=== PATIENT | male | born 1990 | race Caucasian/White ===

== ENCOUNTER 2017-08-07 11:37 | Emergency (ER) | payer SELFPAY ==
[2017-08-07 12:05] VITALS: BP 120/70
[2017-08-07] MEDS ORDERED: Famotidine TAB* 20 MG PO ONE (12:23)
[2017-08-07] MEDS ORDERED: Al Hydrox/Mg Hydrox/Simet LIQ* 30 ML UDC PO ONE (12:23)
--- NOTE | 2017-08-07 12:30 | UC ---
Abdominal Pain Male HPI - HPI Summary HPI Summary: 27 year old male with no significant pmhx here with abdominal pain that started few hours [employer]. He had URI symptoms that started 4 days ago and today he had 2 episodes of diarrhea along nausea. NO fever or chills NO melena or hematochezia. Partially relieved by belching. - History of Current Complaint Chief Complaint: UCAbdominalPain Stated Complaint: ABDOMINAL PAIN Time Seen by Provider: 08/07/17 12:01 Severity Initially: Moderate Pain Intensity: 6 Location: Diffuse Character: Burning Alleviating Factor(s): Other - burping Associated Signs And Symptoms: Positive: Nausea, Diarrhea. Negative: Fever, Constipation, Blood in Stool - Allergies/Home Medications Allergies/Adverse Reactions: Allergies Allergy/AdvReac Type Severity Reaction Status Date / Time No Known Allergies Allergy Verified 08/07/17 11:58 PMH/Surg Hx/FS Hx/Imm Hx Previously Healthy: Yes Other History Of: Negative For: Anticoagulant Therapy - Surgical History Surgical History: Yes Surgery Procedure, Year, and Place: adenoids removed - Social History Alcohol Use: Weekly Substance Use Type: None Smoking Status (MU): Former Smoker Review of Systems Constitutional: Negative Skin: Negative Eyes: Negative ENT: Negative Respiratory: Negative Cardiovascular: Negative Gastrointestinal: Diarrhea, Nausea Genitourinary: Negative Motor: Negative Neurovascular: Negative Musculoskeletal: Negative Neurological: Negative Psychological: Negative All Other Systems Reviewed And Are Negative: Yes Physical Exam Triage Information Reviewed: Yes Appearance: Well-Appearing, No Pain Distress Vital Signs: Initial Vital Signs Temp 37.2 C 08/07/17 12:00 Pulse 59 08/07/17 12:00 Resp 16 08/07/17 12:00 BP 120/70 08/07/17 12:00 Pulse Ox 97 08/07/17 12:00 ENT Exam: Normal Neck exam: Normal Respiratory Exam: Normal Cardiovascular Exam: Normal Abdomen Description: Positive: Other: - mild epigastric tenderness, no McBurneys point tenderness. Negative: Soft, Distended, Guarding Male Genital Exam: Positive: Normal Genitalia. Negative: Lesions, Urethral Discharge Neurological Exam: Normal Skin Exam: Normal Re-Evaluation - Re-Evaluation First Eval Re-Evaluation Time: 01:05 Change: Improved - patient feels a lot better. Urine showed mild ketones. Symptoms c/w gastroenteritis. Abd Pain Male Course/Dx - Differential Dx/Clinical Impression Differential Diagnosis/HQI/PQRI: Diverticulitis, Renal Colic, Urinary Tract Infection, Other - gastritis Provider Diagnoses: Viral gastroenteritis Discharge - Sign-Out/Discharge Documenting (check all that apply): Discharge/Admit/Transfer - Discharge Plan Condition: Good Disposition: HOME Prescriptions: Ondansetron HCl [Zofran 4 MG TAB] 4 mg PO BID #6 tab Patient Education Materials: Gastroenteritis (ED) Forms: *Work Release Referrals: No Primary Care Phys,NOPCP [Primary Care Provider] - - Billing Disposition and Condition Condition: GOOD Disposition: Home
== END 2017-08-07 13:15 | disposition home or self-care (01) ==
LOC: UCEAST 11:37
DX: A08.4 Viral intestinal infection, unspecified (principal); Z87.891 Personal history of nicotine dependence
CPT/HCPCS: 81003; 99212; A9270-GY; G0463